=== PATIENT | female | born 2000 | race African-American/Black ===

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

== ENCOUNTER 2019-11-04 19:40 | Emergency (ER) | payer SELFPAY ==
[~2019-11-04] VITALS: Ht 165.1 cm; Wt 47.6 kg
[~2019-11-04 19:40] MED LIST changes: +AUGMENTIN 875-1 EAC1 ORAL
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
[2019-11-04] MEDS ORDERED: IBUPROFEN600 M1 ORAL (20:22)
[2019-11-04 20:25] VITALS: BP 112/65
--- NOTE | 2019-11-05 09:00 | Diagnostic Imaging Report ---
Indication: Pain, trauma Technique: 3 views left foot Comparison: none Findings: There is a lucency and slight cortical irregularity involving the neck of the fifth metatarsal on 2 views. There also appears to be some associated soft tissue swelling. No other evidence of acute fracture. No dislocations. The joint spaces are preserved. Impression: Findings suspicious for fifth metatarsal neck fracture. Correlate with clinical findings. This finding was phoned to Dr. Salinas at the time of interpretation.
== END 2019-11-04 20:25 | disposition home or self-care (01) ==
LOC: EMR 20:06
DX: S90.32XA Contusion of left foot, initial encounter (principal); X58.XXXA Exposure to other specified factors, initial encounter; Y92.9 Unspecified place or not applicable
CPT/HCPCS: 99283

== ENCOUNTER 2019-11-11 21:29 | Emergency (ER) | payer SELFPAY ==
[~2019-11-11] VITALS: Ht 165.1 cm; Wt 49.0 kg
[~2019-11-11 21:29] MED LIST changes: +IBUPROFEN600 M1 ORAL
[2019-11-11] MEDS ORDERED: Tetracaine 0.5% Opth 4ml Soln RIGHT EYE ONE (21:45)
[2019-11-11] MEDS ORDERED: Fluorescein Strips BOTH EYES ONE (21:45)
[2019-11-11] MEDS ORDERED: Tetracaine 0.5% Opth 4ml Soln LEFT EYE ONE (21:45)
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
[2019-11-11] MEDS ORDERED: Morgan Lens TOPIC ONE (22:00)
[2019-11-11] MEDS ORDERED: LACRI-LUBE1 APPLIC BOTH EYES (22:00)
[2019-11-11 22:03] VITALS: BP 121/78
[2019-11-11 22:35] VITALS: BP 118/75
== END 2019-11-11 22:35 | disposition home or self-care (01) ==
LOC: EMR 21:43
DX: S05.01XA Injury of conjunctiva and corneal abrasion without foreign body, right eye, initial encounter (principal); S05.02XA Injury of conjunctiva and corneal abrasion without foreign body, left eye, initial encounter; X58.XXXA Exposure to other specified factors, initial encounter; Y92.9 Unspecified place or not applicable
CPT/HCPCS: 99283

== ENCOUNTER 2019-12-27 15:16 | Emergency (ER) | payer MEDICAID ==
[~2019-12-27] VITALS: Ht 165.1 cm; Wt 51.3 kg
[~2019-12-27 15:16] MED LIST changes: +LACRI-LUBE1 APPLIC BOTH EYES
[2019-12-27 16:10] LABS: BASOPHILS % (AUTO) 0.9 % (0.0-2.0); EOSINOPHILS % (AUTO) 1.5 % (0.0-3.0); HEMATOCRIT 41.8 % (37.0-47.0); HEMOGLOBIN 13.8 G/DL (12.0-16.0); LYMPHOCYTES % (AUTO) 30.4 % (20.0-45.0); MEAN CORPUSCULAR VOLUME 88 FL (80-99); MONOCYTES % (AUTO) 9.2 % (1.0-10.0); NEUTROPHILS % (AUTO) 58.1 % (45.0-75.0); PLATELET COUNT 228 K/UL (150-450); RED BLOOD COUNT 4.75 M/UL (4.20-5.40); RED CELL DISTRIBUTION WIDTH 13.1 % (11.6-14.8); WHITE BLOOD COUNT 11.8 K/UL (4.8-10.8)
[2019-12-27 16:16] LABS: APPEARANCE,URINE CLOUDY; BILIRUBIN, URINE NEGATIVE (NEGATIVE); GLUCOSE, URINE (UA) NEGATIVE (NEGATIVE); KETONES,URINE 1+ (NEGATIVE); LEUKOCYTE ESTERASE ,URINE 2+ (NEGATIVE); NITRITE,URINE NEGATIVE (NEGATIVE); PH,URINE 6 (4.5-8.0); PROTEIN,URINE 3+ (NEGATIVE); UROBILINOGEN,URINE NORMAL MG/DL (0.0-1.0)
[2019-12-27 16:20] LABS: ALANINE AMINOTRANSFERASE 26 U/L (12-78); ALKALINE PHOSPHATASE 129 U/L (46-116); ANION GAP 8 mmol/L (5-15); ASPARTATE AMINO TRANSFERASE 22 U/L (15-37); BILIRUBIN,TOTAL 0.3 MG/DL (0.2-1.0); BLOOD UREA NITROGEN 8 mg/dL (7-18); CALCIUM 9.1 MG/DL (8.5-10.1); CARBON DIOXIDE 28 MMOL/L (21-32); CHLORIDE 103 MMOL/L (98-107); CREATININE 0.7 MG/DL (0.55-1.30); SODIUM 139 MMOL/L (136-145)
[2019-12-27 16:21] LABS: COLOR,URINE YELLOW
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
--- NOTE | 2019-12-27 17:30 | Diagnostic Imaging Report ---
Indication: Pelvic pain and bleeding, positive test Technique: Transabdominal and transvaginal images of the pelvis Comparison: none Findings: Uterus measures 7.7 cm length by 4.9 cm AP. The endometrium is thickened, measuring 12 mm thick. In the lower uterine segment, there is a fluid collection with what appears to be a decidual reaction. This demonstrates a mean diameter 1 cm, corresponding estimated gestational age of 4 weeks 6 days. No heart activity, yolk sac, or pole demonstrated. No myometrial abnormality. Left ovary is normal in size, demonstrates normal flow on Doppler. The right ovary cannot be visualized. No free cul-de-sac fluid demonstrated. Impression: 1 cm mean diameter fluid collection in the lower uterine segment, likely although not definitively a gestational sac. No heart activity or parts demonstrated. Differential considerations include intrauterine of uncertain viability, missed or in progress. Pseudogestational sac of ectopic also possible but much less likely. Recommend correlation with serial beta-hCGs, follow-up imaging as clinically indicated Nonvisualized right ovary. Unremarkable left ovary. Findings discussed by phone with ER nurse practitioner Boris at the time of interpretation
[2019-12-27] MEDS ORDERED: CEPHALEXIN500 MG ORAL (17:54)
[2019-12-27 18:00] VITALS: BP 112/69
== END 2019-12-27 18:08 | disposition home or self-care (01) ==
LOC: EMR 17:14
DX: O46.91 Antepartum hemorrhage, unspecified, first trimester (principal); O23.41 Unspecified infection of urinary tract in pregnancy, first trimester; Z3A.01 Less than 8 weeks gestation of pregnancy
CPT/HCPCS: 36415; 76801; 76817; 80053; 81003; 84702; 85025; 86850; 86900; 86901; 87086; 96360; Z7502; 99284

== ENCOUNTER 2020-02-15 10:45 | Emergency (ER) | payer MEDICAID ==
[~2020-02-15] VITALS: Ht 165.1 cm; Wt 49.9 kg
[~2020-02-15 10:45] MED LIST changes: +CEPHALEXIN500 MG ORAL
[2020-02-15 10:56] VITALS: BP 124/76
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
[2020-02-15] MEDS ORDERED: ZOVIRAX5 GM TOP (11:03)
== END 2020-02-15 11:17 | disposition home or self-care (01) ==
LOC: EMR 11:10
DX: B00.1 Herpesviral vesicular dermatitis (principal)
CPT/HCPCS: 99282